=== PATIENT | female | born 1980 | race Caucasian/White ===

== ENCOUNTER 2022-07-19 16:21 | Outpatient (CLI) | payer OTHER ==
[~2022-07-19] VITALS: Ht 168.9 cm; Wt 102.7 kg
[2022-07-19] MEDS ORDERED: PRENTAB9 PO (16:31)
[2022-07-19] MEDS ORDERED: ASPI81CH33 PO (16:34)
[2022-07-19] MEDS ORDERED: HOME MED LIST COMPLETE! XX SCH (16:35)
[2022-07-19 16:40] VITALS: BP 121/74
[2022-07-19 18:24] LABS: HEMATOCRIT 38.4 % (36.0-47.0); MEAN CORPUSCULAR HEMOGLOBIN 29.7 pg (27.0-33.0); MEAN CORPUSCULAR HGB CONC 33.9 g/dl (32.0-36.5); MEAN CORPUSCULAR VOLUME 87.7 fl (80.0-96.0); PLATELET COUNT, AUTOMATED 241 10^3/uL (150-450); RED BLOOD COUNT 4.38 10^6/uL (4.00-5.40); WHITE BLOOD COUNT 13.5 10^3/uL (4.0-10.0)
[2022-07-19 18:42] LABS: ALBUMIN 2.8 G/DL (3.2-5.2); ALKALINE PHOSPHATASE 84 U/L (46-116); ALT/SGPT 11 U/L (7.0-40); AST/SGOT 16 U/L (<34); BILIRUBIN,TOTAL 0.3 MG/DL (0.3-1.2); BLOOD UREA NITROGEN 11 MG/DL (9-23); CALCIUM LEVEL 8.8 MG/DL (8.5-10.1); CARBON DIOXIDE LEVEL 21 MMOL/L (20-31); CHLORIDE LEVEL 107 MMOL/L (98-107); CREATININE FOR GFR 0.47 MG/DL (0.55-1.30); CREATININE,RANDOM URINE 27.6 MG/DL; GLOMERULAR FILTRATION RATE > 60.0 (>58); GLUCOSE, FASTING 81 MG/DL (60-100); POTASSIUM SERUM 4.1 MMOL/L (3.5-5.1); SODIUM LEVEL 137 MMOL/L (136-145); TOTAL PROTEIN 6.3 G/DL (5.7-8.2)
[2022-07-19 18:43] LABS: TOTAL PROTEIN,RANDOM URINE < 6.0 MG/DL (0.0-14.0)
[2022-07-19 18:55] VITALS: BP 118/68
== END 2022-07-19 19:00 | disposition home or self-care (01) ==
LOC: M LDO 16:21
PROVIDERS: ATTEND Obstetrics & Gynecology
DX: O36.8130 Decreased fetal movements, third trimester, not applicable or unspecified (principal); Z3A.30 30 weeks gestation of pregnancy; O09.523 Supervision of elderly multigravida, third trimester; O99.613 Diseases of the digestive system complicating pregnancy, third trimester; K21.9 Gastro-esophageal reflux disease without esophagitis; O09.813 Supervision of pregnancy resulting from assisted reproductive technology, third trimester
CPT/HCPCS: 59025; 76815; 80053; 82570; 84156; 85027; G0463

== ENCOUNTER → 2022-08-11 | Outpatient (CLI) | payer OTHER ==
[~2022-08-11] MED LIST: ASPI81CH33 PO; PRENTAB9 PO
== END ==
LOC: M WHC 13:45
PROVIDERS: ATTEND Advanced Practice Midwife
DX: O09.529 Supervision of elderly multigravida, unspecified trimester (principal); Z3A.30 30 weeks gestation of pregnancy

== ENCOUNTER 2022-08-20 08:40 | Outpatient (CLI) | payer OTHER ==
[~2022-08-20] VITALS: Ht 172.7 cm; Wt 107.3 kg
[2022-08-20] MEDS ORDERED: OMEGCAP4 PO (08:59)
[2022-08-20] MEDS ORDERED: GNP250TA9 PO (08:59)
[2022-08-20] MEDS ORDERED: D3-5CAP PO (08:59)
[2022-08-20] MEDS ORDERED: HOME MED LIST COMPLETE! XX SCH (09:00)
[2022-08-20] MEDS ORDERED: PEPC1TAB5 PO (09:00)
[2022-08-20 09:02] VITALS: BP 134/76
[2022-08-20 10:52] VITALS: BP 136/68
[2022-08-20] MEDS ORDERED: FLUCONAZOLE 50MG TABLET PO ONE (11:30)
== END 2022-08-20 12:15 | disposition home or self-care (01) ==
LOC: M LDO 08:40
PROVIDERS: ATTEND Advanced Practice Midwife
DX: O26.853 Spotting complicating pregnancy, third trimester (principal); O44.43 Low lying placenta NOS or without hemorrhage, third trimester; O09.523 Supervision of elderly multigravida, third trimester; O24.410 Gestational diabetes mellitus in pregnancy, diet controlled; O09.813 Supervision of pregnancy resulting from assisted reproductive technology, third trimester; Z3A.34 34 weeks gestation of pregnancy; Z88.0 Allergy status to penicillin; Z88.2 Allergy status to sulfonamides; Z79.82 Long term (current) use of aspirin; Z79.899 Other long term (current) drug therapy
CPT/HCPCS: 59025; 76815; 76817; 76820; G0463

== ENCOUNTER 2022-09-14 20:35 | Inpatient (IN) | payer OTHER ==
[~2022-09-14] VITALS: Ht 170.2 cm; Wt 107.3 kg
[~2022-09-14 20:35] MED LIST changes: +D3-5CAP PO; +GNP250TA9 PO; +OMEGCAP4 PO; +PEPC1TAB5 PO
[2022-09-14 20:51] VITALS: BP 134/88
[2022-09-14] MEDS ORDERED: LACTATED RINGER'S 1000 ML IV STA (20:58)
[2022-09-14] MEDS ORDERED: TRANEXAMIC ACID INJection 1,000 MG in NS 100 ML IV PRN (21:00)
[2022-09-14] MEDS ORDERED: CARBOPROST TROMETHAMINE 250 MCG/ML AMP IM PRN (21:00)
[2022-09-14] MEDS ORDERED: BICITRA 30ML SOLN UDC PO ONE (21:00)
[2022-09-14] MEDS ORDERED: CLINDAMYCIN 900 MG in IV 1 EA IV ONE (21:00)
[2022-09-14] MEDS ORDERED: OXYTOCIN DRIP 30 UNITS in IV 1 EA IV PRN ×6 (21:00)
[2022-09-14] MEDS ORDERED: GENTAMICIN 400 MG in D5W 100 ML IV ONE (21:00)
[2022-09-14] MEDS ORDERED: METHYLERGONOVINE MALEATE 0.2MG/ML 1ML VIAL IM PRN (21:00)
[2022-09-14 21:21] LABS: HEMATOCRIT 35.5 % (36.0-47.0); MEAN CORPUSCULAR HEMOGLOBIN 28.8 pg (27.0-33.0); MEAN CORPUSCULAR HGB CONC 33.8 g/dl (32.0-36.5); MEAN CORPUSCULAR VOLUME 85.3 fl (80.0-96.0); PLATELET COUNT, AUTOMATED 244 10^3/uL (150-450); RED BLOOD COUNT 4.16 10^6/uL (4.00-5.40); WHITE BLOOD COUNT 14.7 10^3/uL (4.0-10.0)
[2022-09-14] MEDS: LR 1,000 ML IV SCH (21:33)
[2022-09-14] MEDS ORDERED: OXYTOCIN 30UNITS IN 0.9% NaCl 500ML IV BAG As Ordered ONE ×3 (22:03→23:09)
[2022-09-14] MEDS ORDERED: ACETAMINOPHEN 1000MG 100ML IV BAG As Ordered ONE (22:04)
[2022-09-14 22:09] LABS: HEPATITIS B SURFACE ANTIGEN NEGATIVE (NEGATIVE)
[2022-09-14] MEDS ORDERED: KETOROLAC 60MG 2ML VIAL As Ordered ONE (22:50)
[2022-09-14] MEDS ORDERED: ONDANSETRON 4MG 2ML VIAL As Ordered ONE (23:09)
[2022-09-14] MEDS ORDERED: SIMETHICONE 80MG CHEW TAB PO PRN (23:15)
[2022-09-14] MEDS ORDERED: ONDANSETRON 4MG 2ML VIAL IV PRN (23:15)
[2022-09-14] MEDS ORDERED: oxyCODONE 5MG TAB PO PRN ×2 (23:15)
[2022-09-14] MEDS ORDERED: OXYTOCIN DRIP 30 UNITS in IV 1 EA IV SCH ×4 (23:15)
[2022-09-14] MEDS ORDERED: ONDANSETRON 4MG TAB PO PRN (23:15)
[2022-09-14] MEDS ORDERED: MOM 30ML SUSPENSION UDC PO PRN (23:15)
[2022-09-14] MEDS ORDERED: METHYLERGONOVINE MALEATE 0.2 MG TAB PO PRN (23:15)
[2022-09-14] MEDS ORDERED: RHOGAM 300MCG (1500IU) INJ IM SCH (23:15)
[2022-09-14] MEDS ORDERED: MORPHINE 2 MG/ML 1ML VIAL IV PRN (23:15)
[2022-09-15] VITALS (10 sets, daily range): BP systolic 117–145; BP diastolic 56–71; TEMP 96.9; O2SAT 96–100
[2022-09-15] MEDS: GABAPENTIN 300 MG CAP PO PRN ×2 (02:30→20:21)
[2022-09-15] MEDS: ACETAMINOPHEN 500 MG TAB PO SCH ×4 (03:26→22:05)
[2022-09-15] MEDS: LR 1,000 ML IV SCH ×5 (03:59→23:15)
[2022-09-15] MEDS: KETOROLAC 30 MG/ML 1ML VIAL IV SCH ×3 (05:01→16:55)
[2022-09-15 06:25] LABS: HEMATOCRIT 27.1 % (36.0-47.0); MEAN CORPUSCULAR HEMOGLOBIN 28.9 pg (27.0-33.0); MEAN CORPUSCULAR HGB CONC 33.2 g/dl (32.0-36.5); MEAN CORPUSCULAR VOLUME 87.1 fl (80.0-96.0); PLATELET COUNT, AUTOMATED 203 10^3/uL (150-450); RED BLOOD COUNT 3.11 10^6/uL (4.00-5.40); WHITE BLOOD COUNT 17.6 10^3/uL (4.0-10.0)
[2022-09-15] MEDS: PRENATAL VITAMINS CHEWABLE TABLET PO SCH (09:00)
[2022-09-15] MEDS ORDERED: ENOXAPARIN 60MG/0.6ML SYRINGE (J1650 PER 10MG) SC SCH (09:00)
[2022-09-15] MEDS: DOCUSATE SODIUM 100MG CAPSULE PO SCH ×2 (09:00→20:21)
[2022-09-15] MEDS: ENOXAPARIN 40MG/0.4ML SYRINGE (J1650 PER 10MG) SC SCH (12:57)
[2022-09-16] MEDS: IBUPROFEN 800 MG TAB PO SCH ×3 (01:53→16:04)
[2022-09-16 02:00] VITALS: BP 112/59; O2SAT 98
[2022-09-16] MEDS: ACETAMINOPHEN 500 MG TAB PO SCH ×4 (04:09→22:25)
[2022-09-16] MEDS: GABAPENTIN 300 MG CAP PO PRN ×2 (05:01→21:01)
[2022-09-16 06:00] VITALS: BP 120/73; O2SAT 97
[2022-09-16] MEDS: PRENATAL VITAMINS CHEWABLE TABLET PO SCH (08:36)
[2022-09-16] MEDS: DOCUSATE SODIUM 100MG CAPSULE PO SCH ×2 (08:36→22:25)
[2022-09-16] MEDS: ENOXAPARIN 40MG/0.4ML SYRINGE (J1650 PER 10MG) SC SCH (08:36)
[2022-09-16] MEDS ORDERED: MEASLES,MUMPS,RUBELLA VACCINE INJ (MMR-II) SC.IMMUN ONE (09:00)
[2022-09-16] MEDS ORDERED: HOME MED LIST COMPLETE! XX SCH (09:25)
[2022-09-16 09:55] VITALS: BP 118/58; O2SAT 98
[2022-09-16 14:00] VITALS: BP 131/67; O2SAT 99
[2022-09-16 18:00] VITALS: BP 120/74; O2SAT 97
[2022-09-16 22:00] VITALS: BP 120/66; O2SAT 98
[2022-09-17] MEDS: IBUPROFEN 800 MG TAB PO SCH ×3 (01:38→16:10)
[2022-09-17 02:00] VITALS: BP 107/52; O2SAT 99
[2022-09-17] MEDS: ACETAMINOPHEN 500 MG TAB PO SCH ×3 (04:35→16:09)
[2022-09-17] MEDS: GABAPENTIN 300 MG CAP PO PRN (05:19)
[2022-09-17 05:53] VITALS: BP 107/58; O2SAT 98
[2022-09-17] MEDS: PRENATAL VITAMINS CHEWABLE TABLET PO SCH (09:45)
[2022-09-17] MEDS: DOCUSATE SODIUM 100MG CAPSULE PO SCH (09:46)
[2022-09-17] MEDS: ENOXAPARIN 40MG/0.4ML SYRINGE (J1650 PER 10MG) SC SCH (09:46)
== END 2022-09-17 16:30 | disposition home or self-care (01) | DRG 773 ==
LOC: M LDO 20:35 → M LDI 21:04 → M OBS 09-15 01:00
PROVIDERS: ADMIT Obstetrics & Gynecology; ATTEND Obstetrics & Gynecology
PROC: 10D00Z1 Extraction of Products of Conception, Low, Open Approach (ICD-10-PCS; principal; 2022-09-14 21:39)
DX: O44.53 Low lying placenta with hemorrhage, third trimester (principal); Z3A.38 38 weeks gestation of pregnancy; O24.429 Gestational diabetes mellitus in childbirth, unspecified control; O99.214 Obesity complicating childbirth; E66.9 Obesity, unspecified; O75.89 Other specified complications of labor and delivery; Z88.0 Allergy status to penicillin; Z88.2 Allergy status to sulfonamides; Z79.82 Long term (current) use of aspirin; Z79.899 Other long term (current) drug therapy; Z37.0 Single live birth

== ENCOUNTER → 2023-10-12 | Outpatient (CLI) | payer OTHER | LOC: M RAD 07:50 | PROVIDERS: ATTEND General Practice | DX: R10.9 Unspecified abdominal pain (principal) ==

== ENCOUNTER 2024-05-12 10:42 | Emergency (ER) | payer OTHER ==
[~2024-05-12] VITALS: Ht 167.6 cm; Wt 79.1 kg
[2024-05-12 11:33] LABS: BASO # 0.1 10^3/uL (0.0-0.2); BASO % 0.6 % (0.0-1.0); EOS # 0.1 10^3/uL (0.0-0.5); EOS % 1.5 % (0.0-3.0); HEMATOCRIT 33.8 % (36.0-47.0); HEMOGLOBIN 10.9 g/dl (12.0-15.5); LYMPH # 2.2 10^3/uL (1.5-5.0); LYMPH % 25.4 % (24.0-44.0); MEAN CORPUSCULAR HEMOGLOBIN 25.3 pg (27.0-33.0); MEAN CORPUSCULAR HGB CONC 32.2 g/dl (32.0-36.5); MEAN CORPUSCULAR VOLUME 78.6 fl (80.0-96.0); MONO # 0.5 10^3/uL (0.0-0.8); MONO % 5.8 % (2.0-8.0); NEUTROPHILS # 5.7 10^3/uL (1.5-8.5); NEUTROPHILS % 66.2 % (36.0-66.0); PLATELET COUNT, AUTOMATED 314 10^3/uL (150-450); WHITE BLOOD COUNT 8.6 10^3/uL (4.0-10.0)
[2024-05-12 11:45] LABS: PARTIAL THROMBOPLASTIN TIME 25.3 SECONDS (24.8-34.2); PROTHROMBIN TIME 13.5 SECONDS (12.5-14.5)
[2024-05-12 12:06] LABS: CK-MB VALUE MASS < 1.0 NG/ML (<3.6); CPK CREATINE PHOSPHOKINASE 91 U/L (34-145); MB/CK RELATIVE INDEX 1.09 (< OR =4)
[2024-05-12] MEDS ORDERED: ISOVUE-370 76% 100ML VIAL As Ordered ONE (12:28)
[2024-05-12 15:18] VITALS: BP 125/59; TEMP 98; O2SAT 98
== END 2024-05-12 15:22 | disposition home or self-care (01) ==
LOC: M ED 10:42 → EDBD 10:42 → M ED 15:22
DX: R51.9 Headache, unspecified (principal); F17.220 Nicotine dependence, chewing tobacco, uncomplicated; Z88.0 Allergy status to penicillin; Z88.2 Allergy status to sulfonamides; Z79.810 Long term (current) use of selective estrogen receptor modulators (SERMs); Z79.899 Other long term (current) drug therapy
CPT/HCPCS: 36415; 70450; 70496; 70498; 70551; 71045; 80047; 82550; 82553; 84484; 85025; 85610; 85730; 87486; 87581; 87633; 87798; 93005; 93041; 94760; 99285; Q9967